=== PATIENT | female | born 1980 | race Caucasian/White ===

== ENCOUNTER 2020-07-18 11:22 | Emergency (ER) | payer SELFPAY ==
[~2020-07-18] VITALS: Ht 160 cm; Wt 64.2 kg
[2020-07-18 11:35] VITALS: BP 123/91
--- NOTE | 2020-07-18 12:00 | NUR ---
PT RETURNED TO LOBBY FROM RAD W/ A STEADY GAIT. SACHIN.
--- NOTE | 2020-07-18 12:08 | NUR ---
PT AMBULATED TO ROOM W/ A STEADY GAIT AT THIS TIME.
[2020-07-18] MEDS ORDERED: KETOROLAC 30 MG/1 ML IM ONE (12:30)
[2020-07-18] MEDS ORDERED: METHOCARBAMOL 750 MG TABLET PO ONE (12:30)
[2020-07-18] MEDS ORDERED: METHOCARBAMOL 750 MG TABLET ONE (12:31)
[2020-07-18] MEDS ORDERED: KETOROLAC 30 MG/1 ML ONE (12:31)
--- NOTE | 2020-07-18 12:50 | NUR ---
Patient given discharge instructions and they have confirmed that they understand the instructions. Patient ambulatory with steady gait.
== END 2020-07-18 12:51 | disposition home or self-care (01) ==
LOC: ED 12:14
DX: S39.012A Strain of muscle, fascia and tendon of lower back, initial encounter (principal); S90.01XA Contusion of right ankle, initial encounter; F15.10 Other stimulant abuse, uncomplicated; F17.210 Nicotine dependence, cigarettes, uncomplicated; Y08.89XA Assault by other specified means, initial encounter; Y93.89 Activity, other specified; Y92.89 Other specified places as the place of occurrence of the external cause; Y99.8 Other external cause status
CPT/HCPCS: 72110; 73610; 99284; J1885